=== PATIENT | male | born 1945 | race African-American/Black ===

== ENCOUNTER 2025-03-22 09:09 | Inpatient (IN) | payer MEDICARE, MEDICAID ==
[~2025-03-22] VITALS: Ht 180.3 cm; Wt 113.9 kg
[2025-03-22 09:12] VITALS: O2SAT 99
[2025-03-22] MEDS: SODIUM CHLORIDE 0.9% (SEPSIS BOLUS) IV ONE (09:34)
[2025-03-22] MEDS: PIPERACILLIN/TAZO 3.375G/50ML 50 ML IV ONE (09:35)
[2025-03-22 09:41] LABS: BASOPHILS % 0.4 % (0.0-2.0); EOSINOPHILS % 1.2 % (0.0-5.0); HEMATOCRIT. 45.7 % (42.0-52.0); HEMOGLOBIN. 15.4 g/dL (14.0-18.0); LYMPHOCYTES % 33.2 % (20.0-50.0); MEAN PLATELET VOLUME 7.1 fl (7.4-10.4); MONOCYTES % 6.5 % (2.0-8.0); NEUTROPHILS % 58.7 % (40.0-76.0); PLATELET 220 x1000/uL (130-400); RED BLOOD CELL COUNT 5.18 mill/uL (4.7-6.1); RED CELL DISTRIBUTION WIDTH 15.3 % (11.6-14.6)
[2025-03-22 09:55] LABS: INR 1.0
[2025-03-22] MEDS: VANCOMYCIN 1G PREMIX 200 ML IV ONE (09:57)
[2025-03-22 10:11] LABS: CREATININE 1.8 mg/dL (0.6-1.3); TROPONIN I HIGH SENSITIVITY 9 ng/L (3.0-53); UREA NITROGEN BLOOD 21 mg/dL (9-23)
[2025-03-22 10:13] LABS: ASPARTATE AMINOTRANSFERASE 16 IU/L (<34); BILIRUBIN DIRECT 0.2 mg/dL (<=3.0)
[2025-03-22 10:14] LABS: BILIRUBIN TOTAL 0.5 mg/dL (0.1-1.0); PROTEIN TOTAL 6.5 g/dL (6.0-8.3)
[2025-03-22 11:44] LABS: CLARITY URINE CLEAR (CLEAR); COLOR URINE YELLOW (YELLOW); GLUCOSE URINE 2+ (NEGATIVE); KETONES URINE TRACE (NEGATIVE); LEUKOCYTE ESTERASE URINE NEGATIVE (NEGATIVE); NITRITE URINE NEGATIVE (NEGATIVE); OCCULT BLOOD URINE NEGATIVE (NEGATIVE); PH URINE 5.5 (4.5-8.0); PROTEIN URINE TRACE (NEGATIVE); SPECIFIC GRAVITY URINE 1.024 (1.005-1.030); UROBILINOGEN URINE 1.0 E.U./dL (0.2-1.0)
[2025-03-22 11:53] LABS: BACTERIA URINE 1+; HYALINE CASTS URINE 0-5 /lpf; RBC URINE NONE SEEN /hpf (0-2); SQUAMOUS EPITHELIAL CELL URINE FEW /lpf (RARE/1+)
[2025-03-22 11:54] LABS: YEAST URINE NONE SEEN
[2025-03-22 14:31] VITALS: BP 127/84; PULSE 71; TEMP 36.4; O2SAT 100
[2025-03-22] MEDS ORDERED: ACETAMINOPHEN 325MG TABLET PO PRN ×2 (15:30)
[2025-03-22] MEDS ORDERED: CLONIDINE 0.1MG TABLET PO PRN (15:30)
[2025-03-22] MEDS ORDERED: IPRATROPIUM/ALBUTEROL 0.5-3(2.5)MG/3ML NEB HHN PRN (15:30)
[2025-03-22] MEDS ORDERED: DOCUSATE SODIUM 100MG CAPSULE PO PRN (15:30)
[2025-03-22] MEDS ORDERED: ONDANSETRON HCL 4MG/2ML INJ IV PRN (15:30)
[2025-03-22 16:00] VITALS: BP 146/88; PULSE 69; RESP 16; TEMP 36.6; O2SAT 95
[2025-03-22 16:57] LABS: *AMPHETAMINES SCREEN URINE NEGATIVE (NEGATIVE); *BARBITURATES SCREEN URINE NEGATIVE (NEGATIVE); *BENZODIAZEPINES SCREEN URINE NEGATIVE (NEGATIVE); *COCAINE SCREEN URINE NEGATIVE (NEGATIVE)
[2025-03-22 16:58] LABS: CANNABINOID URINE SCREEN NEGATIVE (NEGATIVE); ECSTASY MDMA SCREEN URINE NEGATIVE (NEGATIVE); METHADONE URINE SCREEN NEGATIVE (NEGATIVE); OPIATES URINE SCREEN NEGATIVE (NEGATIVE); PHENCYCLIDINE URINE SCREEN NEGATIVE (NEGATIVE)
[2025-03-22] MEDS: CEFTRIAXONE 1GM/50ML 50 ML IV SCH (17:21)
[2025-03-22] MEDS: SODIUM CHLORIDE 0.45% 1,000 ML IV SCH (17:21)
[2025-03-22 17:55] VITALS: BP 127/84; PULSE 77; RESP 16; TEMP 36.418
[2025-03-22 18:41] LABS: CREATINE KINASE MB FRACTION 3.8 ng/mL (0.5-3.6); TROPONIN I HIGH SENSITIVITY 12.0 ng/L (3.0-53)
[2025-03-22 19:18] LABS: HEPATITIS C AB NON REACTIVE (Neg) (Negative)
[2025-03-22 20:00] VITALS: BP 136/87; PULSE 80; RESP 21; TEMP 37; O2SAT 98
[2025-03-23] VITALS: BP 137/76; PULSE 77; RESP 16; TEMP 37.1; O2SAT 96
[2025-03-23] MEDS ORDERED: SIMV5TAB58 MT (01:21)
[2025-03-23] MEDS ORDERED: TERA1CAP53 MT (01:21)
[2025-03-23] MEDS ORDERED: AMLO2.5T45 MT (01:21)
[2025-03-23] MEDS ORDERED: DAPA5TAB MT (01:21)
[2025-03-23 04:00] VITALS: BP 135/82; PULSE 66; RESP 15; TEMP 37; O2SAT 99
[2025-03-23 08:00] VITALS: BP 148/97; PULSE 72; RESP 18; TEMP 36.6; O2SAT 100
[2025-03-23 12:00] VITALS: BP 148/87; PULSE 64; RESP 20; TEMP 36.8; O2SAT 100
[2025-03-23 13:33] VITALS: BP 148/87; PULSE 64; RESP 20; TEMP 98.3
== END 2025-03-23 16:03 | disposition home health service (06) | DRG 315 ==
LOC: ER 09:09 → 3WST 10:33 → EDBEDREQTM 10:43 → EDBEDREQ 10:43 → ENRESERV 13:17
PROVIDERS: ADMIT Internal Medicine; ATTEND Internal Medicine
DX: I95.9 Hypotension, unspecified (principal); E87.20 Acidosis, unspecified; N17.9 Acute kidney failure, unspecified; I12.9 Hypertensive chronic kidney disease with stage 1 through stage 4 chronic kidney disease, or unspecified chronic kidney disease; E78.5 Hyperlipidemia, unspecified; R73.9 Hyperglycemia, unspecified; N18.9 Chronic kidney disease, unspecified; Z79.899 Other long term (current) drug therapy
CPT/HCPCS: 36415; 71045; 76770; 80048; 80076; 80305; 80320; 81003; 82550; 82553; 82962; 83036; 83605; 83880; 84145; 84484; 85025; 86705; 87340; 93005; 93970; 96365; 96368; 99291; A4606; J0696; J2543; J3373; J7030; G0480